=== PATIENT | female | born 1945 | race Caucasian/White ===

== ENCOUNTER → 2016-12-29 | Outpatient (CLI) | payer OTHER ==
--- NOTE | 2016-12-30 07:30 | DI ---
XR CXR 2VW PA/LAT,12/29/2016 5:52 PM: Clinical History: Dyspnea Previous Exam: 10/08/15 Findings: PA and lateral views of the chest are obtained, and demonstrate stable COPD. The cardiomediastinum an d bony thorax are stable when compared with the prior exam. Skeletal structures are unremarkable. Impression: Diffuse COPD otherwise unremarkable.
== END ==
LOC: RAD 18:01
PROVIDERS: ATTEND Physician Assistant Medical
DX: R06.00 Dyspnea, unspecified (principal); R09.02 Hypoxemia; J18.9 Pneumonia, unspecified organism; J44.0 Chronic obstructive pulmonary disease with (acute) lower respiratory infection
CPT/HCPCS: 71020; 99213; J0696